=== PATIENT | male | born 1975 | race Caucasian/White ===

== ENCOUNTER 2019-12-30 07:31 | Outpatient (CLI) | payer BC ==
[2019-12-30 07:40] LABS: BASOPHILS # (AUTO) 0.1 10^3/uL (0.0-0.1); BASOPHILS % (AUTO) 0.9 %; EOSINOPHILS # (AUTO) 0.1 10^3/uL (0.0-0.7); EOSINOPHILS % (AUTO) 2.2 %; HGB - HEMOGLOBIN 16.5 g/dL (14.0-18.0); LYMPHOCYTES # (AUTO) 2.2 10^3/uL (1.5-3.5); LYMPHOCYTES % (AUTO) 37.5 %; MEAN CORPUSCULAR HEMOGLOBIN 29.2 pg (27.0-31.0); MEAN CORPUSCULAR HGB CONC 34.3 g/dL (32.0-36.0); MEAN PLATELET VOLUME 10.2 fL (7.4-11.4); MONOCYTES # (AUTO) 0.3 10^3/uL (0.0-1.0); MONOCYTES % (AUTO) 5.8 %; NEUTROPHILS % (AUTO) 52.2 %; PLT - PLATELET COUNT 175 10^3/uL (130-450); RED BLOOD COUNT 5.66 10^6/uL (4.70-6.10); RED CELL DISTRIBUTION WIDTH 12.6 % (12.0-15.0); WHITE BLOOD COUNT 5.8 x10^3/uL (4.8-10.8)
[2019-12-30 08:01] LABS: ALBUMIN 4.6 g/dL (3.2-5.5); ALBUMIN/GLOBULIN RATIO 1.6 (1.0-2.2); ALKALINE PHOSPHATASE 57 IU/L (42-121); ALT ALANINE AMINOTRANSFERASE 53 IU/L (10-60); AST ASPARTATE AMINOTRANSFERASE 28 IU/L (10-42); BILIRUBIN,TOTAL 0.8 mg/dL (0.2-1.0); BUN - BLOOD UREA NITROGEN 18 mg/dL (6-20); CALCIUM 9.3 mg/dL (8.5-10.3); CARBON DIOXIDE - CO2 26 mmol/L (21-32); CHLORIDE 104 mmol/L (101-111); CHOL/HDL RATIO 5.8 (<5.0); CHOLESTEROL 193 mg/dL; GLUCOSE 101 mg/dL (70-100); HDL CHOLESTEROL 33 mg/dL; LDL CHOLESTEROL,CALCULATED 131 mg/dL; SODIUM 138 mmol/L (135-145); TOTAL PROTEIN 7.4 g/dL (6.7-8.2); VLDL CHOLESTEROL 29 mg/dL
== END 2019-12-30 07:32 | disposition home or self-care (01) ==
LOC: LAB 07:31
PROVIDERS: ATTEND Family Medicine
DX: Z00.00 Encounter for general adult medical examination without abnormal findings (principal)
CPT/HCPCS: 36415; 80053; 80061; 83721; 85025

== ENCOUNTER 2023-10-14 12:28 | Outpatient (CLI) | payer BC ==
--- NOTE | 2023-10-14 17:02 | XRAY Report ---
PROCEDURE: Ankle 1-2V LT INDICATIONS: R KNEE PAIN, L ANKLE PAIN TECHNIQUE: 3 views of the ankle were acquired. COMPARISON: None. FINDINGS: Bones: No fractures or dislocations. Ankle mortise is normally aligned. No suspicious bony lesions . Surgical anchor in the medial malleolus. Soft tissues: No tibiotalar joint effusion. Achilles tendon appears normal. IMPRESSION: No acute bony abnormality. Reviewed by: Otis Almazan MD on 10/14/2023 5:01 PM PDT Approved by: Otis Almazan MD on 10/14/2023 5:01 PM PDT Station ID: [id number]
--- NOTE | 2023-10-14 17:02 | XRAY Report ---
PROCEDURE: Knee 1-2V RT INDICATIONS: R KNEE PAIN, L ANKLE PAIN TECHNIQUE: 2 views of the knee(s) were acquired. COMPARISON: None. FINDINGS: Bones: No fractures or dislocations. No suspicious bony lesions. Chronic fragmentation of the ant erior tibial plateau. Soft tissues: No knee joint effusion. No suspicious soft tissue calcifications or masses. IMPRESSION: No acute bony abnormality. 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 Reviewed by: Otis Almazan MD on 10/14/2023 5:00 PM PDT Approved by: Otis Almazan MD on 10/14/2023 5:00 PM PDT Station ID: [id number]
== END 2023-10-14 12:29 | disposition home or self-care (01) ==
LOC: DI 12:28
DX: S82.141A Displaced bicondylar fracture of right tibia, initial encounter for closed fracture (principal); M25.572 Pain in left ankle and joints of left foot

== ENCOUNTER 2023-10-30 09:29 | Outpatient (CLI) | payer BC ==
--- NOTE | 2023-10-30 11:23 | XRAY Report ---
PROCEDURE: Knee 3V RT INDICATIONS: RIGHT KNEE PAIN TECHNIQUE: 3 views of the right knee were acquired including AP standing view of both knees. COMPARISON: Right knee radiographs 10/14/2023 FINDINGS: Bones: No acute fractures or dislocations. No suspicious bony lesions. Minimal early osteophyte f ormation at the margins of the patellofemoral compartment and at the tibial spines. No significant chauncey int space narrowing. Soft tissues: No suspicious soft tissue calcifications. No lateral view was provided to evaluate for joint effusion. IMPRESSION: No acute osseous abnormality. If symptoms persist or there is continued clinical concern, further tori luation with MRI or CT may be helpful. Reviewed by: Chris Nunez MD on 10/30/2023 11:21 AM PDT Approved by: Chris Nunez MD on 10/30/2023 11:21 AM PDT Station ID: [id number]
== END 2023-10-30 09:30 | disposition home or self-care (01) ==
LOC: DI 09:29
PROVIDERS: ATTEND Physician Assistant Surgical
DX: M25.561 Pain in right knee (principal)